=== PATIENT | male | born 1975 | race Caucasian/White ===

== ENCOUNTER → 2017-03-31 | Outpatient (CLI) | payer OTHER ==
[2017-03-31 16:52] LABS: BUN 10 mg/dL (7-18)
[2017-03-31 16:55] LABS: GFR (ESTIMATED) 124 ML/MIN (>60)
== END ==
LOC: LAB 14:49
PROVIDERS: Internal Medicine Endocrinology, Diabetes & Metabolism
DX: R63.1 Polydipsia (principal); E27.1 Primary adrenocortical insufficiency; E03.9 Hypothyroidism, unspecified